=== PATIENT | male | born 1990 | race American Indian/Alaskan Native ===

== ENCOUNTER 2017-12-22 23:20 | Emergency (ER) | payer SELFPAY ==
[2017-12-23] MEDS ORDERED: TYLENOL PO ONE (01:26)
[2017-12-23] MEDS ORDERED: TYLENOL ONE (01:27)
--- NOTE | 2017-12-23 08:22 | Emergency Department Report ---
ED ENT HPI - General Chief complaint: Dental/Oral Stated complaint: TOOTHACHE Time Seen by Provider: 12/23/17 08:17 Source: patient, family Mode of arrival: Ambulatory Limitations: No Limitations - History of Present Illness Initial comments: 27-year-old male past medical history none presents with complaint of left lower premolar dental abscess/toothache. Patient is speaking full sentences, no wheezing no stridor, no trismus, no drooling noted on exam. Patient states he has had a cavity here for several months but has not yet seen a dentist. Patient complaining of toothache in this region. States he has a dental abscess which spontaneously ruptured yesterday. Denies fevers or chills nausea or vomiting. Speaking in full sentences. Awake alert and oriented 3. MD complaint: tooth pain Onset/Timin -: days(s) Location: tooth # 1 - cavity here Severity scale (0 -10): 5 Quality: aching Consistency: intermittent Improves with: none Worsens with: none Context- Dental: history of dental caries, poor dental care Associated Symptoms: toothache - Related Data Previous Rx's Medication Instructions Recorded Last Taken Type Acetaminophen/Codeine [Tylenol 1 tab PO Q6H PRN #10 tab 12/23/17 Unknown Rx /Codeine # 3 tab] Amoxicillin [Trimox CAP] 500 mg PO Q8H #30 capsule 12/23/17 Unknown Rx Benzocaine [Orajel Liquid 20%] 1 ml MM Q6HR PRN #1 bottle 12/23/17 Unknown Rx Chlorhexidine Mouthwash [Peridex] 15 ml MM BID #1 bottle 12/23/17 Unknown Rx Ibuprofen [Motrin] 800 mg PO Q8HR PRN #20 tablet 12/23/17 Unknown Rx Allergies Allergy/AdvReac Type Severity Reaction Status Date / Time No Known Allergies Allergy Verified 09/13/15 20:30 ED Dental HPI - General Chief complaint: Dental/Oral Stated complaint: TOOTHACHE Time Seen by Provider: 12/23/17 08:17 Source: patient, family Mode of arrival: Ambulatory Limitations: No Limitations - Related Data Previous Rx's Medication Instructions Recorded Last Taken Type Acetaminophen/Codeine [Tylenol 1 tab PO Q6H PRN #10 tab 12/23/17 Unknown Rx /Codeine # 3 tab] Amoxicillin [Trimox CAP] 500 mg PO Q8H #30 capsule 12/23/17 Unknown Rx Benzocaine [Orajel Liquid 20%] 1 ml MM Q6HR PRN #1 bottle 12/23/17 Unknown Rx Chlorhexidine Mouthwash [Peridex] 15 ml MM BID #1 bottle 12/23/17 Unknown Rx Ibuprofen [Motrin] 800 mg PO Q8HR PRN #20 tablet 12/23/17 Unknown Rx Allergies Allergy/AdvReac Type Severity Reaction Status Date / Time No Known Allergies Allergy Verified 09/13/15 20:30 ED Review of Systems ROS: Stated complaint: TOOTHACHE Other details as noted in HPI Constitutional: denies: chills, fever Eyes: denies: eye pain, eye discharge, vision change ENT: dental pain. denies: ear pain, throat pain Respiratory: denies: cough, shortness of breath, wheezing Cardiovascular: denies: chest pain, palpitations Endocrine: no symptoms reported Gastrointestinal: denies: abdominal pain, nausea, diarrhea Genitourinary: denies: urgency, dysuria Musculoskeletal: denies: back pain, joint swelling, arthralgia Skin: denies: rash, lesions Neurological: denies: headache, weakness, paresthesias Psychiatric: denies: anxiety, depression Hematological/Lymphatic: denies: easy bleeding, easy bruising ED Past Medical Hx - Past Medical History Previous Medical History?: No - Surgical History Past Surgical History?: No - Social History Smoking Status: Former Smoker Substance Use Type: Marijuana - Medications Home Medications: Home Medications Medication Instructions Recorded Confirmed Last Taken Type Acetaminophen/Codeine [Tylenol 1 tab PO Q6H PRN #10 tab 12/23/17 Unknown Rx /Codeine # 3 tab] Amoxicillin [Trimox CAP] 500 mg PO Q8H #30 capsule 12/23/17 Unknown Rx Benzocaine [Orajel Liquid 20%] 1 ml MM Q6HR PRN #1 bottle 12/23/17 Unknown Rx Chlorhexidine Mouthwash [Peridex] 15 ml MM BID #1 bottle 12/23/17 Unknown Rx Ibuprofen [Motrin] 800 mg PO Q8HR PRN #20 tablet 12/23/17 Unknown Rx ED Physical Exam - General Limitations: No Limitations General appearance: alert, in no apparent distress - Head Head exam: Present: atraumatic, normocephalic - Eye Eye exam: Present: normal appearance, PERRL, EOMI - ENT ENT exam: Present: mucous membranes moist - Expanded ENT Exam Expanded Teeth exam: Present: dental tenderness # 1 - Dental Tenderness (cavity here) - Neck Neck exam: Present: normal inspection, full ROM - Respiratory Respiratory exam: Present: normal lung sounds bilaterally. Absent: respiratory distress - Cardiovascular Cardiovascular Exam: Present: regular rate, normal rhythm. Absent: systolic murmur, diastolic murmur, rubs, gallop - GI/Abdominal GI/Abdominal exam: Present: soft, normal bowel sounds - Rectal Rectal exam: Present: deferred - Extremities Exam Extremities exam: Present: normal inspection - Back Exam Back exam: Present: normal inspection - Neurological Exam Neurological exam: Present: alert, oriented X3 - Psychiatric Psychiatric exam: Present: normal affect, normal mood - Skin Skin exam: Present: warm, dry, intact, normal color. Absent: rash ED Course Vital Signs 12/23/17 01:21 Temperature 98.5 F Pulse Rate 68 Respiratory 18 Rate Blood Pressure 123/70 O2 Sat by Pulse 99 Oximetry ED Medical Decision Making - Medical Decision Making A/P: dental cavities, toothache, dental abscess 1- Motrin when necessary, amoxicillin ten-day course, Orajel when necessary, Peridex mouthwash daily basis, short course codeine when necessary 2- I provided patient with information for multiple dental clinics to follow up and stressed the importance of dental follow-up as he has multiple cavities that require dental fixation or instrumentation 3- no clinical signs of facial abscess, no Carlos Manuel's angina, no induration or cellulitis of floor of mouth or tongue 4- patient able to tolerate by mouth before discharge 5- no signs of facial infection. Advised patient that if he does not take antibiotics with follow-up with a dentist as soon as possible that a can result in potentially serious or dangerous infection to develop in jaw or face. Patient states that he understood these instructions. I advised patient to return to the ED for any persistent unrelenting nausea or vomiting fever or chills or headaches. Critical care attestation.: If time is entered above; I have spent that time in minutes in the direct care of this critically ill patient, excluding procedure time. ED Disposition Clinical Impression: Dental cavity, Toothache, Dental abscess Disposition: TO HOME OR SELFCARE Is pt being admited?: No Does the pt Need Aspirin: No Condition: Stable Instructions: Dental Abscess (ED), Dental Caries (ED) Prescriptions: Acetaminophen/Codeine [Tylenol /Codeine # 3 tab] 1 tab PO Q6H PRN #10 tab PRN Reason: Pain Amoxicillin [Trimox CAP] 500 mg PO Q8H #30 capsule Benzocaine [Orajel Liquid 20%] 1 ml MM Q6HR PRN #1 bottle PRN Reason: Toothache Chlorhexidine Mouthwash [Peridex] 15 ml MM BID #1 bottle Ibuprofen [Motrin] 800 mg PO Q8HR PRN #20 tablet PRN Reason: Pain Referrals: [facility] [Outside] - 3-5 Days [facility] [Outside] - 3-5 Days Forms: Work/School Release Form(ED) Time of Disposition: 08:20
[2017-12-23 08:30] VITALS: BP 115/73
== END 2017-12-23 08:31 | disposition home or self-care (01) ==
LOC: ED 23:20
DX: K04.7 Periapical abscess without sinus (principal); K02.9 Dental caries, unspecified; F12.10 Cannabis abuse, uncomplicated; Z87.891 Personal history of nicotine dependence
CPT/HCPCS: 99282